=== PATIENT | male | born 1960 | race Caucasian/White ===

== ENCOUNTER 2022-05-31 13:31 | Outpatient (REF) | payer MEDICAID, SELFPAY ==
[2022-05-31 16:59] LABS: Bilirubin Small (Negative); Blood Large (Negative); Clarity Turbid (Clear); Glucose Negative (Negative); Ketones Trace mg/dL (Negative); Leukocyte Esterase Negative (Negative); Nitrite Negative (Negative); Specific Gravity >= 1.030 (1.005-1.025); pH 5.5 (5-8)
[2022-05-31 17:08] LABS: Bacteria Negative HPF (Negative); Crystals Many Amorphous HPF (Negative); Epithelial Cells Negative HPF (Negative); WBC Negative HPF (0-5)
[2022-05-31 17:09] LABS: C & S Indicated? No; Mucus Negative (Negative)
== END 2022-05-31 13:32 | disposition home or self-care (01) ==
LOC: LBN 13:31
PROVIDERS: Visit Provider Nurse Practitioner Family
DX: R31.9 Hematuria, unspecified (principal)
CPT/HCPCS: 81003; 81015

== ENCOUNTER 2022-07-16 15:55 | Outpatient (REF) | payer MEDICAID, SELFPAY ==
[2022-07-19 11:01] LABS: PSA, Diagnostic 13.6 ng/mL (<=4.5)
[2022-07-24 10:04] LABS: Testosterone, Total 662 ng/dL (240-950)
== END 2022-07-16 15:56 | disposition home or self-care (01) ==
LOC: LBN 15:55
PROVIDERS: Visit Provider Urology
DX: C61 Malignant neoplasm of prostate (principal)
CPT/HCPCS: 84403; 84153

== ENCOUNTER 2022-10-05 09:31 | Outpatient (CLI) | payer MEDICAID, SELFPAY ==
[2022-10-05 09:07] LABS: Absolute Basophil Count 0.05 10^3/uL (0.0-0.2); Absolute Eosinophil Count 0.06 10^3/uL (0.0-0.7); Absolute Lymphocyte Count 1.62 10^3/uL (1.2-3.4); Absolute Monocyte Count 0.71 10^3/uL (0.1-0.8); Absolute Neutrophil Count 7.79 10^3/uL (1.2-6.7); Basophils % 0.5; Eosinophils % 0.6; HCT 30.6 % (40.0-50.0); HGB 9.7 g/dL (13.5-17.5); Lymphocytes % 15.7; MCH 28.4 pg (27.0-33.0); MCHC 31.7 % (32.0-36.0); MCV 90 fL (80-95); MPV 9.2 fL (8.0-11.0); Monocytes % 6.9; Neutrophils % 75.3; Platelet Count 391 10^3/uL (130-400); RBC 3.41 10^6/uL (4.36-5.78); RDW-SD 48.8 fL; WBC 10.33 10^3/uL (4.4-10.8)
[2022-10-05 09:32] LABS: ALT 25 U/L (16-63); AST 31 U/L (15-37); Albumin 3.1 g/dL (3.4-5.0); Alkaline Phosphatase 215 U/L (46-116); Anion Gap 10.6 mmol/L (3-11); BUN 13 mg/dL (7-18); Bilirubin, Total 0.3 mg/dL (0.2-1.0); CO2 27.4 mmol/L (21.0-32.0); CREATININE 0.8 mg/dL (0.70-1.30); Calcium 9.1 mg/dL (8.5-10.1); Chloride 100 mmol/L (98-107); Estimated GFR 98.83 (mL/min/1.73m2); Glucose 108 mg/dL (74-106); Potassium 3.3 mmol/L (3.5-5.1); Sodium 138 mmol/L (136-145); Total Protein 7.8 g/dL (6.4-8.2)
[2022-10-06 16:57] LABS: PSA, Ultrasensitive 8.6 ng/mL (<= 4.5)
[2022-10-11 12:32] LABS: Testosterone, Total <7.0 ng/dL (240-950)
== END 2022-10-05 09:32 | disposition home or self-care (01) ==
LOC: LBO 09:32
PROVIDERS: Visit Provider Student in an Organized Health Care Education/Training Program
DX: C61 Malignant neoplasm of prostate (principal)
CPT/HCPCS: 36415; 80053; 84153; 84403; 85025

== ENCOUNTER 2023-02-01 11:29 | Outpatient (CLI) | payer MEDICARE, MEDICAID, SELFPAY ==
[2023-02-01 09:55] LABS: Abs Immature Grans 0.08 10^3/uL (0.0-0.06); Absolute Basophil Count 0.06 10^3/uL (0.0-0.2); Absolute Lymphocyte Count 0.91 10^3/uL (1.2-3.4); Absolute Monocyte Count 0.96 10^3/uL (0.1-0.8); Basophils % 0.5; Eosinophils % 0.2; Immature Grans % 0.7; Lymphocytes % 7.4; MCHC 33.3 % (32.0-36.0); MCV 87 fL (80-95); Monocytes % 7.8; Neutrophils % 83.4; Platelet Count 360 10^3/uL (130-400); RDW-SD 47.8 fL; WBC 12.25 10^3/uL (4.4-10.8)
[2023-02-01 09:56] LABS: Absolute Eosinophil Count 0.02 10^3/uL (0.0-0.7); Absolute Neutrophil Count 10.22 10^3/uL (1.2-6.7)
[2023-02-01 10:20] LABS: ALT 47 U/L (16-63); AST 79 U/L (15-37); Albumin 2.7 g/dL (3.4-5.0); Alkaline Phosphatase 383 U/L (46-116); Anion Gap 6.4 mmol/L (3-11); BUN 23 mg/dL (7-18); Bilirubin, Total 0.2 mg/dL (0.2-1.0); CO2 26.6 mmol/L (21.0-32.0); CREATININE 0.6 mg/dL (0.70-1.30); Calcium 8.9 mg/dL (8.5-10.1); Chloride 97 mmol/L (98-107); Estimated GFR 107.13 (mL/min/1.73m2); Glucose 125 mg/dL (74-106); Potassium 3.7 mmol/L (3.5-5.1); Sodium 130 mmol/L (136-145); Total Protein 7.5 g/dL (6.4-8.2)
[2023-02-02 19:21] LABS: PSA, Ultrasensitive 22.7 ng/mL (<= 4.5)
[2023-02-05 11:52] LABS: Testosterone, Total <7.0 ng/dL (240-950)
== END 2023-02-01 11:30 | disposition home or self-care (01) ==
LOC: LBO 11:30
PROVIDERS: Visit Provider Student in an Organized Health Care Education/Training Program
DX: C61 Malignant neoplasm of prostate (principal)
CPT/HCPCS: 36415; 80053; 84153; 84403; 85025